=== PATIENT | female | born 1985 | race Caucasian/White ===

== ENCOUNTER 2017-03-11 10:56 | Emergency (ER) | payer MEDICAID, OTHER ==
[~2017-03-11] VITALS: Ht 165.1 cm; Wt 72.0 kg
[2017-03-11 11:09] VITALS: Ht 165.1 cm; Wt 72.0 kg
[2017-03-11] MEDS ORDERED: AZITHROMYCIN 250 MG TAB PO ONE (12:00)
[2017-03-11] MEDS ORDERED: LIDOCAINE 1% (MDV) 20 ML INJ SC ONE (12:00)
[2017-03-11] MEDS ORDERED: CEFTRIAXONE 250 MG INJ IM ONE (12:00)
[2017-03-11] MEDS ORDERED: FLUC150T17 PO (12:14)
[2017-03-11] MEDS ORDERED: METR70GE15 VAG (12:14)
[2017-03-11] MEDS ORDERED: CEPH-443 PO (12:14)
--- NOTE | 2017-03-11 12:34 | ERD ---
ER Documentation Chief Complaint Date/Time DATE: 03/11/17 TIME: 12:30 Chief Complaint L eye swelling X 3 days, R ear clogged X 4 days, also r/o STI. HPI 31-year-old female presents with left lower eyelid swelling for the past 3 days , right ear pain, and also has a had a recent exposure to either gonorrhea or chlamydia. She reports that she has had left eye swelling, achy pain, has not had any discharge or visual changes or trauma to the area. She also reports right ear fullness, feels like it is clogged on the inside of the ear. She has not had any fevers or chills. She recently reports that she had sexual intercourse with a male partner and told her that he was either positive for "gonorrhea or chlamydia but I am not sure". She reports that she odor but no fevers or chills or vaginal bleeding. ROS All systems reviewed and are negative except as per history of present illness. Medications Home Meds Active Scripts Metronidazole* (Metrogel* Vaginal) 0.75% -70 Gram Gel.w.appl, 1 APPFUL VAG BID for 5 Days, TUB Prov:CYNTHIA VARGAS PA-C 03/11/17 Fluconazole* (Diflucan*) 150 Mg Tablet, 150 MG PO ONCE, #1 TAB Prov:CYNTHIA VARGAS PA-C 03/11/17 Cephalexin* (Keflex*) 500 Mg Capsule, 500 MG PO QID for 7 Days, CAP Prov:CYNTHIA VARGAS PA-C 03/11/17 Allergies Allergies: Coded Allergies: No Known Allergy (Unverified , 03/11/17) PMhx/Soc Medical and Surgical Hx: pt denies Medical Hx, pt denies Surgical Hx Hx Alcohol Use: No Hx Substance Use: No Hx Tobacco Use: No Smoking Status: Never smoker Physical Exam Vitals Vital Signs Date Time Temp Pulse Resp B/P Pulse Ox O2 Delivery O2 Flow Rate FiO2 03/11/17 11:09 97.7 93 18 123/78 99 Physical Exam General: Well-developed, well-nourished. The patient appears in no acute distress. HEENT: Head is normocephalic, atraumatic. No scleral icterus. Oral mucous membranes are moist. No pharyngeal erythema. Right TM is erythematous and bulging, there is left lower lateral eyelid swelling, no fluctuance, extraocular is intact, eyes are Catarino. No conjunctival injection. Neck: Supple. Nontender. Lungs: Clear to auscultation. Normal air movement. Heart: Regular rate and rhythm. S1 and S2 are normal. No murmurs, gallops, or rubs. Abdomen: Soft, nontender, nondistended. Bowel sounds are normoactive. Extremities: No clubbing or cyanosis. Normal pulses. Moving extremities x 4. No weakness. Neurologic: Alert and oriented 3. No focal deficits. Skin: Normal turgor. No rash or lesions. Results 24 hrs Current Medications Medications (Trade) Dose Ordered Sig/Sabino Route PRN Reason Start Time Stop Time Status Last Admin Dose Admin Ceftriaxone Sodium (Rocephin) 250 mg ONCE ONCE IM 03/11/17 12:00 03/11/17 12:01 DC 03/11/17 12:15 Azithromycin (Zithromax) 1,000 mg ONCE ONCE PO 03/11/17 12:00 03/11/17 12:01 DC 03/11/17 12:15 Lidocaine (Xylocaine 1% (Mdv) 20 ml) 20 ml ONCE ONCE SC 03/11/17 12:00 03/11/17 12:01 DC 03/11/17 12:15 Procedures/MDM ED course: Patient was given Rocephin 250 mg IM and Zithromax 1 g by mouth. Medical decision makin-year-old female presents with hordeolum on the left lower eyelid, also right otitis media. She has had recent exposure to either gonorrhea or chlamydia was treated for both in the emergency department. Patient will also be given MetroGel, she has had a fishy odor. Vitals are reviewed she is afebrile, nontoxic without any signs or symptoms of sepsis or pelvic inflammatory disease. She reports that usually when she goes on antibiotics she gets yeast infections will also be given Diflucan. Departure Diagnosis: Primary Impression: STD exposure Additional Impressions: Hordeolum Otitis media, right Condition: Good Patient Instructions: If You Think You Have an STD, Otitis Media, Abx Tx (Adult ), Sty Additional Instructions: Call your primary care doctor TOMORROW for an appointment during the next 1-2 days.See the doctor sooner or return here if your condition worsens before your appointment time. CYNTHIA VARGAS PA-C Mar 11, 2017 12:34
== END 2017-03-11 12:46 | disposition home or self-care (01) ==
LOC: FTE 10:56
DX: H00.015 Hordeolum externum left lower eyelid (principal); H66.91 Otitis media, unspecified, right ear; Z20.2 Contact with and (suspected) exposure to infections with a predominantly sexual mode of transmission
CPT/HCPCS: 87591; 96372; J0696; Z7502; Z7610

== ENCOUNTER 2017-03-11 17:32 | Emergency (ER) | payer MEDICAID ==
[~2017-03-11] VITALS: Ht 165.1 cm; Wt 63.6 kg
[~2017-03-11 17:32] MED LIST: CEPH-443 PO; FLUC150T17 PO; METR70GE15 VAG
--- NOTE | 2017-03-11 17:58 | ERA ---
ER Documentation Chief Complaint Date/Time DATE: 03/11/17 TIME: 17:57 Chief Complaint Sleeping inside a car HPI The patient is a 31-year-old female, presenting to the ER because a bystander called [id number] when they saw her sleeping is, at a supermarket parking lot. She was awake, alert, able to answer question appropriately upon arrival to the ER. She did not know why she was brought to the ER and wanted to go. She admitted using heroin earlier this morning and was sleeping inside a car to wait for her roommate to go home. She denies syncope, near syncope, neck pain, chest pain, dyspnea, diabetes, vomiting with dysuria, diarrhea.. She smokes, denies drinking. She was seen earlier today in the ER for UTI Past medical history: None Past surgical history: None ROS All systems reviewed and are negative except as per history of present illness. Medications Home Meds Active Scripts Metronidazole* (Metrogel* Vaginal) 0.75% -70 Gram Gel.w.appl, 1 APPFUL VAG BID for 5 Days, TUB Prov:CYNTHIA VARGAS PA-C 03/11/17 Fluconazole* (Diflucan*) 150 Mg Tablet, 150 MG PO ONCE, #1 TAB Prov:CYNTHIA VARGAS PA-C 03/11/17 Cephalexin* (Keflex*) 500 Mg Capsule, 500 MG PO QID for 7 Days, CAP Prov:CYNTHIA VARGAS PA-C 03/11/17 Allergies Allergies: Coded Allergies: No Known Allergy (Unverified , 03/11/17) PMhx/Soc Hx Alcohol Use: No Hx Substance Use: No Hx Tobacco Use: No Physical Exam Vitals Vital Signs Date Time Temp Pulse Resp B/P Pulse Ox O2 Delivery O2 Flow Rate FiO2 03/11/17 18:00 98.9 96 18 115/69 100 Physical Exam Const: No acute distress. Head: Atraumatic. Eyes: Normal Conjunctiva. ENT: Normal External Ears, Nose and Mouth. Neck: Full range of motion. No meningismus. Resp: Clear to auscultation bilaterally. Cardio: Regular rate and rhythm. Abd: Soft, non distended, normal bowel sounds, non tender. Skin: No petechiae or rashes. Back: No midline or flank tenderness. Ext: No cyanosis, or edema. Neur: Awake and alert. No focal deficit Psych: Normal Mood and Affect. Procedures/MDM MEDICAL MAKING DECISION: The patient is a 31-year-old female, presenting to the ER, admitted to using heroin this morning. She is awake, alert, and under no respiratory distress, is able to follow-up as outpatient Departure Diagnosis: Primary Impression: Heroin abuse Condition: Good Comments I discussed the findings with the patient. I advised the patient to follow-up with the primary physician in about 1-2 days, sooner if needed and return if any concern. MABEL MASON MD Mar 11, 2017 17:57
[2017-03-11 18:00] VITALS: Ht 165.1 cm; Wt 63.6 kg
== END 2017-03-11 18:15 | disposition home or self-care (01) ==
LOC: E/R 17:32
DX: F11.10 Opioid abuse, uncomplicated (principal)
CPT/HCPCS: 99284